=== PATIENT | male | born 1985 | race Caucasian/White ===

== ENCOUNTER 2016-03-17 20:57 | Emergency (ER) | payer OTHER ==
--- NOTE | 2016-03-17 21:42 | EDPHY ---
H & P Time Seen by Provider: 03/17/16 21:36 HPI/ROS: CHIEF COMPLAINT: Bilateral foot infections HISTORY OF PRESENT ILLNESS: This patient is an incarcerated 30 year old male who presents to the Emergency Department complaining of bilateral foot infections beginning six months prior to arrival and waxing and waning in severity over time. He tells me that he has been seen six times since September by the physicians at the custodial and has been treated with multiple courses of antibiotics without complete alleviation of his symptoms. He was seen by a district loss prevention manager on Wednesday who told him that he is experiencing a fungal infection and suggested that he treat his infection with Clobetasol gel that has been ordered but he has not yet obtained by custodial staff. He presents to the ED today because of increased swelling to his toes. He complains of pain to both feet and bilaterally to his lower legs. He denies fever, chills, streaking, numbness/ weakness, fever or any additional complaints. No pertinent medical history. Past Medical/Surgical History: Denies. Social History: Incarcerated. Smoking Status: Never smoked Physical Exam: General Appearance: Alert, no distress Neurological: A&O, nonfocal, normal gait Skin: Warm and dry, no rash. Crusty drainage on an erythematous base on the dorsal aspect of all toes. Tenderness and erythema at the base of the fourth toe of the left foot with faint red streak extending approximately 4cm up the foot. Extremities: no calf tenderness, no pedal edema Psychiatric: Mood and affect normal Constitutional: Initial Vital Signs Temperature (C) 36.5 C 03/17/16 21:03 Heart Rate 97 03/17/16 21:03 Respiratory Rate 16 03/17/16 21:03 Blood Pressure 149/105 H 03/17/16 21:03 O2 Sat (%) 97 03/17/16 21:03 O2 Delivery Mode Room Air Allergies/Adverse Reactions: No Known Allergies Allergy (Unverified 03/17/16 21:07) Home Medications: Medication Instructions Recorded Cephalexin [Keflex (*)] 500 mg PO QID #28 cap 03/17/16 Medical Decision Making ED Course/Re-evaluation: This pt presents with a fungal infection and difficulty obtaining the correct medication. We dispensed the steroid cream to him. He also has an early superinfection, which I will treat with Keflex. Warning signs discussed. - Data Points Medications Given: Discontinued Medications Cephalexin HCl (Keflex) 500 mg PO EDNOW ONE PRN Reason: Protocol Stop: 03/17/16 21:54 Last Admin: 03/17/16 22:44 Dose: 500 mg Clobetasol Propionate (Temovate Cream) 1 medhat TP EDNOW ONE Stop: 03/17/16 21:56 Last Admin: 03/17/16 22:44 Dose: 1 drop Departure - Departure Disposition: Home, Routine, Self-Care Clinical Impression: Fungal infection of foot Qualifiers: Laterality: bilateral Qualifier Code: (B35.3) Tinea pedis Condition: Good Instructions: Clobetasol Propionate (On the skin) Additional Instructions: 1. Take the full course of Cephalex as prescribed. 2. Use Clobetasol cream on your toes twice daily, as recommended by the district loss prevention manager. 3. Return to the Emergency Department if you experience fever or chills, severe foot or leg pain, sensation changes to your feet, or other worsening of condition. Referrals: NONE *PRIMARY CARE P,. [Primary Care Provider] - As per Instructions Prescriptions: Cephalexin [Keflex (*)] 500 mg PO QID #28 cap Report Scribed for: Eveline Yuen Report Scribed by: Yadira Smith Date of Report: 03/17/16 Time of Report: 21:37 Physician Review and Approval Statement: 03/17/16 21:37 Portions of this note were transcribed by a medical recruiter. I personally performed a history, physical exam, medical decision making, and confirmed accuracy of information the transcribed note.
[2016-03-17] MEDS ORDERED: CEPHALEXIN 500 MG CAP PO ONE (21:53)
[2016-03-17] MEDS ORDERED: CLOBETASOL 0.05% 15 GM CRTUBE TP ONE (21:55)
[2016-03-17 22:48] VITALS: BP 118/78; PULSE 70; RESP 14; TEMP 98.4; O2SAT 96
== END 2016-03-17 22:46 | disposition home or self-care (01) ==
DX: B35.3 Tinea pedis (principal)